=== PATIENT | female | born 1970 | race Hispanic/Latino ===

== ENCOUNTER 2023-08-20 08:52 | Inpatient (IN) | payer BC, SELFPAY ==
--- OUTSIDE RECORDS SUMMARY | 2023-08-20 08:56 | XMS REPORT | Continuity of Care Document ---
:1970 Author Organization [facility] t Address [address] [place] [address] Care Team Providers Name Role Phone Taylor Giles Attending Clinician Unavailable PROVIDER, VIDEOVISITNOW Attending Clinician Unavailable MD PATEL Attending Clinician Unavailable KATHY HARRIS Attending Clinician Unavailable ARMANDO Attending Clinician Unavailable ARMANDO Admitting Clinician Unavailable Payers Payer Name Policy Type Policy Number Effective Date Expiration Date S jc BCBS 2 [id number] 2023 00:00:00 [employer] 6 [id number] [facility] AETNA (POS) [id number] 2015 2020 00:00:00 00:00:00 Problems Condition Condition Condition Status Onset Resolution Last Treating Co mments Source Name Details Category Date Date Treatment Clinician Date Mild Mild Disease Active Krys intermitte intermitte 3-29 Se ybold nt asthma nt asthma 00:00: - without without 00 Externa complicati complicati l on on Class 3 Class 3 Disease Active Krys severe severe 3-29 Seybold obesity obesity 00:00: - due to due to 00 Externa excess excess l calories calories without without serious serious comorbidit comorbidit y with y with body mass body mass index index (BMI) of (BMI) of 50.0 to 50.0 to 59.9 in 59.9 in adult adult History of History of Disease Active Overview : Krys anaphylaxi anaphylaxi 3- Formattin Seybold s s 00:00: g of this note Externa might be l different from the original. 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's Archibald's Problem Active [place] palsy Palsy - da 00:00: [facility] [id number] Panic Problem Common attacks [facility] [id number] Anxiety Problem Common [facility] [id number] Vitamin D Problem Comm on deficiency [facility] [id number] Chronic Problem Common fatigue [facility] [id number] Cataract Problem Comm on of left [facility] eye, - [facility] unspecifie [facility] cataract [facility] [id number] Morbid Problem Common obesity Spirit due to - [facility] excess [facility] Allergies, Adverse Reactions, Alerts Allergy Allergy Status Severity Reaction(s) Onset Inactive Treating Comm ents Source Name Type Date Date Clinician Nsaids Propensi Active Other Krys ty to 3-29 reaction( Seybold adverse 00:00: s): SOB - reaction 00 Externa s l Iodine Propensi Active Anaphylaxis Other Raul baker ty to 5-11 reaction( Seybold adverse 00:00: s): - reaction 00 Anaphylax Exter na s is l Naproxen Propensi Active Other Krys ty to 5-11 reaction( Seybold adverse 00:00: s): - reaction 00 Nausea/Vo Exter na s miting l Iodine Allergy Active Moderate Anaphylaxis Ma tagor to da substanc [facility] Shrimp Allergy Active Moderate Anaphylaxis Ma tagor to to severe da substanc [facility] shrimp shrimp Active anaphylaxis Commo n allergen allergen [facility] ic ic - [facility] extract extract [facility] Non-ster Non-ster Active SOB Common oidal oidal Spirit anti-inf anti-inf - [facility] lammator lammator [facility] agent [facility] Social History Social Habit Start Date Stop Date Quantity Comments Source History of Tobacco [facility] - Use [facility] Gender identity Krys mart - External Sexual orientation Krys Chung - External History of Social 2023-02-17 2023-02-17 Krys Chung function 00:00:00 00:00:00 - External Tobacco use and 2023-02-17 2023-02-17 Smokeless tobacco Ke moiz Chung exposure 00:00:00 00:00:00 non-user - External Alcohol intake 2023-02-17 2023-02-17 Ex-drinker Krys Baker bold 00:00:00 00:00:00 (finding) - External Sex Ass[birth year] At [birth year] Krys mart 00:00:00 00:00:00 - External Smoking Status Start Date Stop Date Source Never smoked tobacco Krys bradley - External Former Smoker 2022-08-25 00:00:00 2022-08-25 00:00:00 Common S pirit - [facility] nter Medications Ordered Filled Start Stop Current Ordering Indication Dosage Frequency Signature Comments Components Source Medication Medication Date Date Medication? Clinician (SIG) Name Name Ciprofloxac 2022- No [id number] 500mg Take 1 Krys in HCl 02-17 tablet Sebarron (Cipro) 500 00:00: 04:59 (500 mg - MG oral 00 :00 total) by Externa Tablet mouth 2 l times daily for 7 days Womens Womens No Womens Daily Daily 9- Daily Formula - Formula - 00:00: Formula - 00 Vitamin Vitamin No Vitamin C-Vitamin C-Vitamin 08-13 C-Vitamin D-Zinc - D-Zinc - 00:00: D-Zinc - 00 CBD Gummies CBD Gummies No QD CBD 1 1 08-13 Gummies 1 00:00: 00 Womens Womens 0 No Womens Daily Daily 9-22 Daily Formula - Formula - 00:00: Formula - 00 Vitamin Vitamin No Vitamin C-Vitamin C-Vitamin 08-13 C-Vitamin D-Zinc - D-Zinc - 00:00: D-Zinc - 00 Vitamin Vitamin No Vitamin C-Vitamin C-Vitamin 08-13 C-Vitamin D-Zinc - D-Zinc - 00:00: D-Zinc - 00 Womens Womens 0 No Womens Daily Daily - Daily Formula - Formula - 00:00: Formula - 00 CBD Gummies CBD Gummies 0 No QD CBD 1 1 9- Gummies 1 00:00: 00 CBD Gummies CBD Gummies 0 No QD CBD 1 1 9- Gummies 1 00:00: 00 Womens Womens 0 No Womens Daily Daily 08-13 Daily Formula - Formula - 00:00: Formula - 00 Vitamin Vitamin No Vitamin C-Vitamin C-Vitamin 08-13 C-Vitamin D-Zinc - D-Zinc - 00:00: D-Zinc - 00 CBD Gummies CBD Gummies No QD CBD 1 1 - Gummies 1 00:00: 00 Womens Womens 0 No Womens Daily Daily 08-13 Daily Formula - Formula - 00:00: Formula - 00 Vitamin Vitamin No Vitamin C-Vitamin C-Vitamin 08-13 C-Vitamin D-Zinc - D-Zinc - 00:00: D-Zinc - 00 Vitamin Vitamin No Vitamin C-Vitamin C-Vitamin 08-13 C-Vitamin D-Zinc - D-Zinc - 00:00: D-Zinc - 00 Womens Womens 0 No Womens Daily Daily 08-13 Daily Formula - Formula - 00:00: Formula - 00 CBD Gummies CBD Gummies 0 No QD CBD 1 1 08-13 Gummies 1 00:00: 00 CBD Gummies CBD Gummies 0 No QD CBD 1 1 9- Gummies 1 00:00: 00 Immune Immune No Immune Support - Support - Support - Albuterol Albuterol No 1{puff_ 6xD Albuterol Sulfate HFA Sulfate HFA as_need Sulfate 108 (90 108 (90 ed} HFA 108 Base) Base) (90 Base) MCG/ACT MCG/ACT MCG/ACT Vitamin B Vitamin B No Vitamin B 12 12 12 Multivitami Multivitami No 1{table QD Multivitam n - n - t} in - Immune Immune No Immune Support - Support - Support - Albuterol Albuterol No 1{puff_ 6xD Albuterol Sulfate HFA Sulfate HFA as_need Sulfate 108 (90 108 (90 ed} HFA 108 Base) Base) (90 Base) MCG/ACT MCG/ACT MCG/ACT Vitamin B Vitamin B No Vitamin B 12 12 12 Multivitami Multivitami No 1{table QD Multivitam n - n - t} in - Immune Immune No Immune Support - Support - Support - Albuterol Albuterol No 1{puff_ 6xD Albuterol Sulfate HFA Sulfate HFA as_need Sulfate 108 (90 108 (90 ed} HFA 108 Base) Base) (90 Base) MCG/ACT MCG/ACT MCG/ACT Vitamin B Vitamin B No Vitamin B 12 12 12 Multivitami Multivitami No 1{table QD Multivitam n - n - t} in - Immune Immune No Immune Support - Support - Support - Albuterol Albuterol No 1{puff_ 6xD Albuterol Sulfate HFA Sulfate HFA as_need Sulfate 108 (90 108 (90 ed} HFA 108 Base) Base) (90 Base) MCG/ACT MCG/ACT MCG/ACT Vitamin B Vitamin B No Vitamin B 12 12 12 Multivitami Multivitami No 1{table QD Multivitam n - n - t} in - Immune Immune No Immune Support - Support - Support - Albuterol Albuterol No 1{puff_ 6xD Albuterol Sulfate HFA Sulfate HFA as_need Sulfate 108 (90 108 (90 ed} HFA 108 Base) Base) (90 Base) MCG/ACT MCG/ACT MCG/ACT Vitamin B Vitamin B No Vitamin B 12 12 12 Vitamin B Vitamin B No Vitamin B 12 12 12 Immune Immune No Immune Support - Support - Support - Albuterol Albuterol No 1{puff_ 6xD Albuterol Sulfate HFA Sulfate HFA as_need Sulfate 108 (90 108 (90 ed} HFA 108 Base) Base) (90 Base) MCG/ACT MCG/ACT MCG/ACT Multivitami Multivitami No 1{table QD Multivitam n - n - t} in - Vitamin B Vitamin B No Vitamin B 12 12 12 Immune Immune No Immune Support - Support - Support - Albuterol Albuterol No 1{puff_ 6xD Albuterol Sulfate HFA Sulfate HFA as_need Sulfate 108 (90 108 (90 ed} HFA 108 Base) Base) (90 Base) MCG/ACT MCG/ACT MCG/ACT Multivitami Multivitami No 1{table QD Multivitam n - n - t} in - Multivitami Multivitami No 1{table QD Multivitam n - n - t} in - Immune Immune No Immune Support - Support - Support - Albuterol Albuterol No 1{puff_ 6xD Albuterol Sulfate HFA Sulfate HFA as_need Sulfate 108 (90 108 (90 ed} HFA 108 Base) Base) (90 Base) MCG/ACT MCG/ACT MCG/ACT Vitamin B Vitamin B No Vitamin B 12 12 12 Multivitami Multivitami No 1{table QD Multivitam n - n - t} in - Diflucan Diflucan No 1 Q2D Diflucan [place] 150 mg 150 mg 150 mg da tablet Take tablet Take tablet [facility] 1 tablet 1 tablet Take 1 al every other every other tablet Health day by oral day by oral every Outreac route for 6 route for 6 other day h days. days. by oral Program route for 6 days. terconazole terconazole No 1applic Q1D terconazol [place] 0.4 % 0.4 % ator(s) e 0.4 % da vaginal vaginal ful vaginal [facility] cream cream cream al Insert 1 Insert 1 Insert 1 Hea lth applicatorf applicatorf applicator Outreac ul every ul every ful every h day by day by day by Program vaginal vaginal vaginal route for 7 route for 7 route for days. days. 7 days. Vital Signs Vital Name Observation Time Observation Value Comments Source Systolic blood 2023-02-17 16:24:00 128 mm[Hg] Krys Chung - pressure External Diastolic blood 2023-02-17 16:24:00 65 mm[Hg] Mishel Chung - pressure External Heart rate 2023-02-17 16:24:00 78 /min Krys asif - External Body temperature 2023-02-17 16:24:00 36.5 Sheila Elena Chung - External Respiratory rate 2023-02-17 16:24:00 16 /min Elena Chung - External Body height 2023-02-17 16:24:00 160 cm Krys asif - External Body weight 2023-02-17 16:24:00 138.801 kg Krys lozabold - External BMI 2023-02-17 16:24:00 54.21 kg/m2 Krys asif - External Oxygen saturation in 2023-02-17 16:24:00 96 /min Krys Chung - Arterial blood by External Pulse oximetry height 2022-08-25 09:00:00 63.75 [in_i] [facility] weight 2022-08-25 09:00:00 307.2 [lb_av] [facility] temperature 2022-08-25 09:00:00 97.3 [degF] [facility] bmi 2022-08-25 09:00:00 53.14 kg/m2 [facility] oximetry 2022-08-25 09:00:00 98 % [facility] respiratory rate 2022-08-25 09:00:00 16 /min Comm on [facility] blood pressure 2022-08-25 09:00:00 135 mm[Hg] [facility] - systolic [facility] blood pressure 2022-08-25 09:00:00 72 mm[Hg] [facility] diastolic [facility] height 2022-07-28 10:20:00 63.75 [in_i] [facility] weight 2022-07-28 10:20:00 307 [lb_av] [facility] temperature 2022-07-28 10:20:00 97.3 [degF] [facility] bmi 2022-07-28 10:20:00 53.1 kg/m2 [facility] oximetry 2022-07-28 10:20:00 100 % [facility] respiratory rate 2022-07-28 10:20:00 18 /min Comm on [facility] blood pressure 2022-07-28 10:20:00 108 mm[Hg] [facility] - systolic [facility] blood pressure 2022-07-28 10:20:00 80 mm[Hg] [facility] - diastolic [facility] BP Diastolic 2019-12-22 00:00:00 79 mm[Hg] [place] [facility] Height 2019-12-22 00:00:00 63 [in_i] [place] [facility] BMI (Body Mass 2019-12-22 00:00:00 53.9 kg/m2 [place] applications support analyst Index) [facility] BP Systolic 2019-12-22 00:00:00 174 mm[Hg] [place] [facility] Body Weight 2019-12-22 00:00:00 304 [lb_av] [place] [facility] Procedures Procedure Date / Time Performed Performing Clinician Sourc e MAMMO, screening, 2019-12-22 00:00:00 [place] [facility] Tubal Ligation [place] [facility] Orthopedic Surgery [place] [facility] Delivery [place] [facility] Plan of Care Planned Activity Planned Date Details Comments Source Diagnostic Test 2019-12-22 CBC w/ auto diff [place] Pending 00:00:00 [code = CBC w/ auto [facility] diff] [facility] Diagnostic Test 2019-12-22 TSH + free T4, serum Dalton harriet Pending 00:00:00 [code = TSH + free [facility] T4, serum] [facility] Diagnostic Test 2019-12-22 lipid panel, serum [facility] applications support analyst Pending 00:00:00 [code = lipid panel, [facility] serum] [facility] Diagnostic Test 2019-12-22 HIV 1+2 AB + HIV 1 [place] applications support analyst Pending 00:00:00 p24 Ag, qualitative [facility] immunoassay, serum [facility] [code = HIV 1+2 AB + HIV 1 p24 Ag, qualitative immunoassay, serum] Diagnostic Test 2019-12-22 RPR (rapid plasma [place] Pending 00:00:00 reagin), serum [code [facility] = RPR (rapid plasma Outreach Program reagin), serum] Diagnostic Test 2019-12-22 HBsAg (hepatitis B [facility] applications support analyst Pending 00:00:00 surface Ag), EIA, [facility] serum [code = HBsAg Outreach [facility] (hepatitis B surface Ag), EIA, serum] Diagnostic Test 2019-12-22 pap, IG + CT/NG/TV [facility] applications support analyst Pending 00:00:00 [code = pap, IG + [facility] CT/NG/TV] [facility] Diagnostic Test 2019-12-22 CMP, serum or plasma Dalton harriet Pending 00:00:00 [code = CMP, serum or [facility] plasma] [facility] Encounters Start End Encounter Admission Attending Care Care Encounter Source Date/Time Date/Time Type Type Clinicians Facility Department ID 2022-08-21 Outpatient Taylor Giles [facility] [id number] 2 Common 13:27:00 [facility] 2022-08-13 Outpatient Taylor Giles [facility] [id number] 2 Common 16:38:00 [facility] 2022-07-28 Outpatient Taylor Giles [facility] [id number] 2 Common 10:22:03 [facility] 2023-06-21 2023-06-21 Outpatient PROVIDERKRYS [id number] Krys 08:45:00 08:45:00 VIDEOVISITN barron OW 2023-06-21 2023-06-21 Outpatient CALIXTO HUNTER [id number] Krys 00:00:00 00:00:00 MD Kadeem BEE 2023-06-02 2023-06-02 Outpatient KRYS HARRIS [id number] Krys 14:30:00 14:30:00 KATHY cunha 2023-02-17 2023-02-17 Outpatient KRYS HARRIS [id number] Krys 11:30:00 11:30:00 KATHY Siuybol guerline 2022-08-25 2022-08-25 (TEL) [facility] [id number] Co mmon 00:00:00 00:00:00 [facility] 2022-08-25 2022-08-25 PREV VISIT STLMLC STLC [id number] Common 00:00:00 00:00:00 EST AGE Yifan [age] [facility] 2022-08-12 2022-08-12 (TEL) STLMLC STLMLC [id number] Co mmon 00:00:00 00:00:00 [facility] 2022-07-28 2022-07-28 (TEL) STLMLC STLMLC [id number] Co mmon 00:00:00 00:00:00 [facility] 2022-07-28 2022-07-28 OFFICE STLC STLC [id number] Co mmon 00:00:00 00:00:00 VISIT NEW Spir it PT LEVEL 4 - [facility] 2019-12-30 2019-12-30 Outpatient MARVIN_DIANE SHELLEY [facility] [id number] [place] 11:06:00 11:06:00 SSA [id number] [facility] 2019-12-22 2019-12-22 Outpatient MARVIN_DIANE SHELLEY [facility] [id number] [place] 04:20:00 04:20:00 SSA [id number] da [facility] 2019-12-22 2019-12-22 Fay VTMAYELA [place] - [id number] M atagor 00:00:00 00:00:00 Allyson Cox, [facility] VINEYARD SUPERVISOR: [address] [facility] Marlene Xavier N, TEAM TRUCK DRIVER [facility], [facility] [id number] [facility] , Ph. 2019-12-19 2019-12-19 Outpatient MARVIN_DIANE SHELLEY VTHOP [id number] [place] 08:13:00 08:13:00 SSA [id number] [facility] Results Test Description Test Time Test Comments Results Result Comments Source Free T4 and TSH panel - Serum or Plasma 2019-12-23 00:00:00 Test Item Value Reference Range Interpretation Comme nts Thyrotropin [Units/volume] in Serum or Plasma by 1.690 uIU/mL 0.450 -4.500 Detection limit <= 0.005 mIU/L (test code = 37878-3) Thyroxine (T4) free [Mass/volume] in Serum or Plasma 1.22 NG/dL 0 .82-1.77 (test code = 3024-7) [facility] W Auto Differential panel - Blood 2019-12-23 00:00:00 Test Item Value Reference Range Interpretation Comments Leukocytes [#/volume] in Blood 14.1 x10e3/uL 3.4-10.8 H by Automated count (test code = 6690-2) Erythrocytes [#/volume] in 4.52 x10e6/uL 3.77-5.28 Blood by Automated count (test code = 789-8) Hemoglobin [Mass/volume] in 12.7 g/dL 11.1-15.9 Blood (test code = 718-7) Hematocrit [Volume Fraction] of 38.2 % 34.0-46.6 Blood by Automated count (test code = 4544-3) Erythrocyte mean corpuscular 85 fL 79-97 volume [Entitic volume] by Automated count (test code = 787-2) Erythrocyte mean corpuscular 28.1 pg 26.6-33.0 hemoglobin [Entitic mass] by Automated count (test code = 785-6) Erythrocyte mean corpuscular 33.2 g/dL 31.5-35.7 hemoglobin concentration [Mass/volume] by Automated count (test code = 786-4) Erythrocyte distribution width 13.8 % 11.7-15.4 [Ratio] by Automated count (test code = 788-0) Platelets [#/volume] in Blood 377 x10e3/uL 150-450 by Automated count (test code = 777-3) Neutrophils/100 leukocytes in 63 % not estab. Blood by Automated count (test code = 770-8) Lymphocytes/100 leukocytes in 29 % not estab. Blood by Automated count (test code = 736-9) Monocytes/100 leukocytes in 6 % not estab. Blood by Automated count (test code = 5905-5) Eosinophils/100 leukocytes in 2 % not estab. Blood by Automated count (test code = 713-8) Basophils/100 leukocytes in 0 % not estab. Blood by Automated count (test code = 706-2) immature cells (test code = unpaid intern immature cells) Neutrophils [#/volume] in Blood 8.8 x10e3/uL 1.4-7.0 H by Automated count (test code = 751-8) Lymphocytes [#/volume] in Blood 4.0 x10e3/uL 0.7-3.1 H by Automated count (test code = 731-0) Monocytes [#/volume] in Blood 0.9 x10e3/uL 0.1-0.9 by Automated count (test code = 742-7) Eosinophils [#/volume] in Blood 0.3 x10e3/uL 0.0-0.4 by Automated count (test code = 711-2) Basophils [#/volume] in Blood 0.1 x10e3/uL 0.0-0.2 by Automated count (test code = 704-7) immature granulocytes (test 0 % not estab. code = immature granulocytes) Granulocytes Immature 0.0 x10e3/uL 0.0-0.1 [#/volume] in Blood by Automated count (test code = 19922-6) Nucleated erythrocytes/100 unpaid intern leukocytes [Ratio] in Blood by Automated count (test code = 57784-3) Morphology [interpretation] in unpaid intern Blood Narrative (test code = 03476-8) [facility] Outreach ProgramComprehensive metabolic 2000 panel - Serum or [id number] 00:00:00 Test Item Value Reference Range Interpretation Comments Glucose [Mass/volume] in Serum 95 mg/dL 65-99 or Plasma (test code = 2345-7) Urea nitrogen [Mass/volume] in 14 mg/dL 6-24 Serum or Plasma (test code = 3094-0) Creatinine [Mass/volume] in 0.89 mg/dL 0.57-1.00 Serum or Plasma (test code = 2160-0) eGFR if nonafricn AM (test 77 mL/min/1.73 >59 code = eGFR if nonafricn AM) eGFR if africn AM (test code = 89 mL/min/1.73 >59 eGFR if africn AM) Urea nitrogen/Creatinine [Mass 16 9-23 Ratio] in Serum or Plasma (test code = 3097-3) Sodium [Moles/volume] in Serum 140 mmol/L 134-144 or Plasma (test code = 2951-2) Potassium [Moles/volume] in 4.0 mmol/L 3.5-5.2 Serum or Plasma (test code = 2823-3) Chloride [Moles/volume] in 102 mmol/L 96-106 Serum or Plasma (test code = 2074-0) Carbon dioxide, total 22 mmol/L 20-29 [Moles/volume] in Serum or Plasma (test code = 2027-9) Calcium [Mass/volume] in Serum 9.1 mg/dL 8.7-10.2 or Plasma (test code = 44932-3) Protein [Mass/volume] in Serum 7.6 g/dL 6.0-8.5 or Plasma (test code = 2885-2) Albumin [Mass/volume] in Serum 3.9 g/dL 3.8-4.8 or Plasma (test code = 1751-7) Globulin [Mass/volume] in 3.7 g/dL 1.5-4.5 Serum by calculation (test code = 55095-7) Albumin/Globulin [Mass Ratio] 1.1 1.2-2.2 L in Serum or Plasma (test code = 1759-0) Bilirubin.total [Mass/volume] <0.2 0.0-1.2 in Serum or Plasma (test code = 1974-2) Alkaline phosphatase 109 IU/L 39-117 [Enzymatic activity/volume] in Serum or Plasma (test code = 6768-6) Aspartate aminotransferase 22 IU/L 0-40 [Enzymatic activity/volume] in Serum or Plasma (test code = 1920-8) Alanine aminotransferase 23 IU/L 0-32 [Enzymatic activity/volume] in Serum or Plasma (test code = 1742-6) [facility] - [facility] or Plasma 2019-12-23 00:00:00 Test Item Value Reference Range Interpretation Comments Cholesterol [Mass/volume] in Serum 174 mg/dL 100-199 or Plasma (test code = 2092-3) Triglyceride [Mass/volume] in Serum 150 mg/dL 0-149 H or Plasma (test code = 2571-8) Cholesterol in HDL [Mass/volume] in 44 mg/dL >39 Serum or Plasma (test code = 2084-9) Cholesterol in VLDL [Mass/volume] 30 mg/dL 5-40 in Serum or Plasma by calculation (test code = 10671-8) Cholesterol in LDL [Mass/volume] in 100 mg/dL 0-99 H Serum or Plasma by calculation (test code = 40945-6) comment: (test code = comment:) unpaid intern [facility] [Presence] in Serum by RPR 2019-12-23 00:00:00 Test Item Value Reference Range Interpretation Comments Reagin Ab [Presence] in Serum by non reactive non reactive RPR (test code = 38798-4) [facility] Ab+HIV1 p24 Ag [Presence] in Serum by [id number] 00:00:00 Test Item Value Reference Range Interpretation Comments HIV 1+2 Ab+HIV1 p24 Ag non reactive non reactive [Presence] in Serum by Immunoassay (test code = 58194-9) [facility]atitis [facility] virus surface Ag [Presence] in Serum or Plasma by [id number] 00:00:00 Test Item Value Reference Range Interpretation Comments Hepatitis B virus surface Ag negative negative [Presence] in Serum or Plasma by Immunoassay (test code = 5196-1) [facility] panel, [id number] 00:00:00 Test Item Value Reference Range Interpretation Comments interpretation (test code = note interpretation) pdf image (test code = pdf image) . [facility]
[2023-08-20 09:24] LABS: Specific Gravity 1.019 (1.005-1.030); Urine Bacteria >50 /HPF (<20); Urine Bilirubin NEGATIVE (Negative); Urine Blood 3+ (OVER) (Negative); Urine Clarity Extremely Turbid (Clear); Urine Color Dark-Yellow (Yellow); Urine Glucose NEGATIVE (Negative); Urine Protein 2+ (Negative); Urine RBC >50 /HPF (None Seen); Urine Urobilinogen Normal (Normal); Urine pH 5.5 (5.0-7.0)
[2023-08-20] MEDS ORDERED: ONDANSETRON 4 MG/2 ML VIAL ONE (09:38)
[2023-08-20] MEDS ORDERED: MORPHINE 4 MG/ML SYR ONE ×3 (09:38→14:36)
[2023-08-20 09:39] LABS: Absolute Lymphocytes (CBC) 3.7 K/uL (0.7-4.9); Hematocrit 37.9 % (36.0-45.0); Lymphocytes % 26.1 % (15.3-44.8); MCV 84.9 fL (80-100); MPV 7.9 fL (7.6-11.3); Platelets 314 thou/uL (152-406); RBC Red Blood Cell Count 4.47 M/uL (3.86-4.86)
--- NOTE | 2023-08-20 09:47 | RAD REPORT ---
EXAM DESCRIPTION: [facility] Protocol - 08/20/2023 9:39 am CLINICAL HISTORY: back/flank pain COMPARISON: No comparisons TECHNIQUE: CT of the abdomen and pelvis was performed. All CT scans are performed using dose optimization technique as appropriate and may include automated exposure control or mA/KV adjustment according to patient size. FINDINGS: Lower chest: No acute abnormality. Liver: Hepatic steatosis. Cirrhotic liver morphology. Biliary: No biliary ductal dilatation. Stomach: No significant focal abnormality. Duodenum: No significant focal abnormality. Pancreas: No significant abnormality. Spleen: No significant abnormality. Adrenal: No suspicious lesions. Kidney/ureter: Right periureteric stranding and mild right-sided hydronephrosis. No obstructing stone . Retroperitoneum: No retroperitoneal adenopathy. Vascular: No aneurysm. Bowel: Diverticulosis without diverticulitis. Normal appendix. Peritoneum: No ascites or free air. Bladder: Grossly unremarkable. Reproductive: No adnexal masses. Bones: No acute fracture. Other: n/a IMPRESSION: Mild right-sided hydroureteronephrosis and periureteric stranding. No obstructing stone or mass is seen. This could be secondary to either recently passed stone or infection.
[2023-08-20 09:55] LABS: Albumin 3.1 g/dL (3.4-5.0); Bilirubin Total 0.3 mg/dL (0.2-1.0); Potassium 3.6 mEq/L (3.5-5.1); Protein, Total 8.1 g/dL (6.4-8.2)
--- NOTE | 2023-08-20 10:05 | EDPHYS ---
Physician Documentation [facility] Name: Angelita Bellamy Age: 53 yrs Sex: Female : 1970 Arrival Date: 08/20/2023 Time: 08:52 Bed 20 Private MD: ED Physician Renard Martinez HPI: 08/20 09:22 This 53 yrs old Female presents to ER via Ambulatory with complaints of Low rn Back Pain. 09:22 The patient presents with pain that is acute. The symptoms are located in the low back. rn The pain radiates to the abdomen. Onset: The symptoms/episode began/occurred 2 day(s) ago. Modifying factors: The patient symptoms are alleviated by nothing, the patient symptoms are aggravated by nothing. Associated signs and symptoms: Pertinent positives: abdominal pain, hematuria, Pertinent negatives: fever, incontinence, urinary retention. Severity of symptoms: At their worst the symptoms were moderate, in the emergency department the symptoms are unchanged. The patient has not experienced similar symptoms in the past. The patient has not recently seen a physician. Patient reports right lower back pain that radiates around to the abdomen, feels bloated, recent doctor visit with hematuria and told needed outpatient work-up.. Historical: - Allergies: 09:01 Iodine; nj1 09:01 Naproxen; nj1 09:01 Aleve; nj1 09:01 Advil; nj1 - PMHx: 09:01 Asthma; nj1 - PSHx: 09:01 section; nj1 - Immunization history:: Client reports receiving the 2nd dose of the Covid vaccine. - Social history:: Smoking status: Patient denies any tobacco usage or history of. - Family history:: not pertinent. - Hospitalizations: : No recent hospitalization is reported. ROS: 09:25 Constitutional: Negative for fever, chills, and weight loss, Cardiovascular: Negative rn for chest pain, palpitations, and edema, Respiratory: Negative for shortness of breath, cough, wheezing, and pleuritic chest pain, Abdomen/GI: Positive for abdominal bloating Back: Positive for right lower back pain : Positive for dysuria MS/Extremity: Negative for injury and deformity, Skin: Negative for injury, rash, and discoloration, Neuro: Negative for headache, weakness, numbness, tingling, and seizure, Exam: 09:25 Constitutional: This is a well developed, well nourished patient who is awake, alert, rn appears uncomfortable, ambulatory to room without assistance Head/Face: Normocephalic, atraumatic. Cardiovascular: Regular rate and rhythm. No pulse deficits. Respiratory: No increased work of breathing, no retractions or nasal flaring. Abdomen/GI: Soft, non-tender Back: No spinal tenderness. Full range of motion. No CVAT Skin: Warm, dry MS/ Extremity: Pulses equal, no cyanosis. Neuro: Awake and alert, GCS 15, oriented to person, place, time, and situation. Cranial nerves II-XII grossly intact. Motor strength 5/5 in all extremities. Sensory grossly intact. Cerebellar exam normal. Normal gait. Vital Signs: 08:58 BP 161 / 73; Pulse 77; Resp 18; Temp 98.1(TE); Pulse Ox 100% ; Weight 136.08 kg; Height nj1 5 ft. 3 in. ; Pain 8/10; 09:35 BP 111 / 82; Pulse 88; Resp 20; Pulse Ox 96% on R/A; tf2 10:00 BP 111 / 82; Pulse 83; Resp 16; Pulse Ox 98% on R/A; tf2 10:15 Pain 7/10; tf2 11:00 BP 127 / 55; Pulse 70; Resp 16; Pulse Ox 98% on R/A; tf2 11:30 Pain 5/10; tf2 12:30 BP 112 / 56; Pulse 67; Resp 15; Temp 98.5; Pulse Ox 96% on R/A; tf2 14:00 BP 118 / 56; Pulse 68; Resp 17; Pulse Ox 96% on R/A; tf2 17:00 BP 106 / 58; Pulse 80; Resp 15; Pulse Ox 98% on R/A; tf2 08:58 Body Mass Index 53.14 (136.08 kg, 160.02 cm) nj1 08:58 Pain Scale: Adult nj1 10:15 Pain Scale: Adult tf2 11:30 Pain Scale: Adult tf2 [place] Coma Score: 09:35 Eye Response: spontaneous(4). Motor Response: obeys commands(6). Verbal Response: tf2 oriented(5). Total: 15. MDM: 08:55 Patient medically screened. rn 10:01 Differential diagnosis: strain, Herniated disc UTI, ascending infection, rn pyelonephritis. Data reviewed: vital signs, nurses notes, lab test result(s), radiologic studies, CT scan, and as a result, I will admit patient. Consideration of Admission/Observation Patient was admitted/placed on observation. Escalation of care including admission/observation considered. 10:04 Counseling: I had a detailed discussion with the patient and/or guardian regarding the rn historical points, exam findings, and any diagnostic results supporting the discharge/admit diagnosis, lab results, radiology results, the need for further work-up and treatment in the hospital. Response to treatment: There is no appreciated change of the patient's symptoms at this time. ED course: Patient with a sending infection, probably early pyelonephritis. Stable vital signs. Elevated WBC. Patient still very uncomfortable. No perinephric abscess or stone. Will admit for IV antibiotics and pain control.. 08/20 09:02 Order name: Urinalysis w/ reflexes; Complete Time: 09:54 08/20 09:16 Order name: CBC with Diff; Complete Time: 09:54 08/20 09:16 Order name: CMP; Complete Time: 10:04 08/20 09:16 Order name: Lipase; Complete Time: 10:04 08/20 09:27 Order name: Urine Culture [facility] 08/20 10:03 Order name: Blood Culture Adult (2) 08/20 10:03 Order name: Lactate w/ 2H reflex if indic. 08/20 13:42 Order name: Bilirubin Direct [facility] 08/20 13:42 Order name: Phosphorus [facility] 08/20 13:42 Order name: Magnesium [facility] 08/20 16:07 Order name: Lactate Sepsis 2 HR Follow-up [facility] 08/20 09:16 Order name: CT Stone Protocol; Complete Time: 09:54 08/20 11:22 Order name: CONS Physician Consult [facility] 08/20 09:16 Order name: IV Saline Lock; Complete Time: 09:22 08/20 09:16 Order name: Labs collected and sent; Complete Time: 09:22 rn Administered Medications: 09:34 Drug: morphine IVP or IV 4 mg IVP once over 4 mins Route: IVP; Infused Over: 4 mins; tf2 Site: right antecubital; 10:15 Follow up: Pain 05/31 Adult tf2 09:34 Drug: Ondansetron IVP 4 mg IVP once; over 2 minutes Route: IVP; Site: right antecubital;tf2 10:30 Follow up: Response: Nausea is decreased tf2 10:40 Drug: morphine IVP or IV 4 mg IVP once over 4 mins Route: IVP; Infused Over: 4 mins; tf2 Site: right antecubital; 11:30 Follow up: Response: Pain is decreased tf2 11:30 Follow up: Pain 5/10 Adult tf2 11:56 Drug: Rocephin IV 1 grams IV at calculated rate once; Given slow IV push per pharmacy tf2 instructions Route: IV; Rate: calculated rate; Site: right antecubital; 13:00 Follow up: IV Status: Completed infusion tf2 Disposition Summary: 08/20/23 10:05 Hospitalization Ordered Notes: Hospitalization Status: Inpatient Admission rn Provider: Javier Latham rn Condition: Stable rn Problem: new rn Symptoms: are unchanged rn Bed/Room Type: Standard rn Location: Telemetry/MedSurg (Inpatient)(08/20/23 16:25) eb Room Assignment: [facility](08/20/23 16:25) eb Diagnosis - Pyelonephritis acute rn Forms: - Medication Reconciliation Form rn - SBAR form rn - Leadership Thank You Letter rn Signatures: Dispatcher [employer] EDRenard Saunders MD MD rn Botello, Elizabeth eb Jaco, Norma RN RN nj1 Alanis Hoang RN RN tf2 Corrections: (The following items were deleted from the chart) 09:21 09:16 Abdomen Pelvis W Con+CT.RAD.BRZ ordered. EDPR EDPR 11:23 10:05 Telemetry/MedSurg (Inpatient) rn eb 11: 10:05 rn eb 16:25 11:23 [facility] ER HOLD eb eb 16: 11:23 ERHOLD- eb eb
--- NOTE | 2023-08-20 10:05 | ER ---
Nurse's Notes [facility] Name: Angelita Bellamy Age: 53 yrs Sex: Female : 1970 Arrival Date: 08/20/2023 Time: 08:52 Bed 20 Private MD: Diagnosis: Pyelonephritis acute Presentation: 08/20 08:58 Chief complaint: Patient states: Right low back pain for 3 days, getting worse. Started nj1 having some urinary discomfort 2 days ago. Unsure if it is a UTI. Coronavirus screen: Vaccine status: Patient reports receiving the 2nd dose of the covid vaccine. Ebola Screen: Patient denies travel to an Ebola-affected area in the 21 days before illness onset. Initial Sepsis Screen: Does the patient meet any 2 criteria? No. Patient's initial sepsis screen is negative. Does the patient have a suspected source of infection? No. Patient's initial sepsis screen is negative. Risk Assessment: Do you want to hurt yourself or someone else? Patient reports no desire to harm self or others. Onset of symptoms was August 17, 2023. 08:58 Method Of Arrival: Ambulatory [facility] 08:58 Acuity: LEANN 3 nj1 Triage Assessment: 17:14 General: Behavior is calm, cooperative, quiet. tf2 Historical: - Allergies: 09:01 Iodine; nj1 09:01 Naproxen; nj1 09:01 Aleve; nj1 09:01 Advil; nj1 - PMHx: 09:01 Asthma; md1 - PSHx: 09:01 section; nj1 - Immunization history:: Client reports receiving the 2nd dose of the Covid vaccine. - Social history:: Smoking status: Patient denies any tobacco usage or history of. - Family history:: not pertinent. - Hospitalizations: : No recent hospitalization is reported. Screenin:35 [facility] ED Fall Risk Assessment (Adult) History of falling in the last 3 months, tf2 including since admission No falls in past 3 months (0 pts) Confusion or Disorientation No (0 pts) Intoxicated or Sedated No (0 pts) Impaired Gait No (0 pts) Mobility Assist Device Used No (0 pt) Altered Elimination Yes (1 pt) Score/Fall Risk Level 0 - 2 = Low Risk Oriented to surroundings, Maintained a safe environment, Educated pt \T\ family on fall prevention, incl call for assistance when getting out of bed, Assessed \T\ reinforced patient's understanding of fall precautions, Provided non-skid footwear. Abuse screen: Denies threats or abuse. Denies injuries from another. Nutritional screening: No deficits noted. Tuberculosis screening: No symptoms or risk factors identified. Assessment: 09:35 General: Appears uncomfortable, obese, well groomed. Pain: Complains of pain in lumbar tf2 area, left low back and right low back through to front of lower abdomen. Neuro: No deficits noted. Cardiovascular: No deficits noted. Respiratory: No deficits noted. GI: Reports lower abdominal pain, bloating. GI: Abdomen is distended, obese. : Reports burning with urination, pain urgency. Musculoskeletal: No deficits noted. Vital Signs: 08:58 BP 161 / 73; Pulse 77; Resp 18; Temp 98.1(TE); Pulse Ox 100% ; Weight 136.08 kg; Height nj1 5 ft. 3 in. ; Pain 8/10; 09:35 BP 111 / 82; Pulse 88; Resp 20; Pulse Ox 96% on R/A; tf2 10:00 BP 111 / 82; Pulse 83; Resp 16; Pulse Ox 98% on R/A; tf2 10:15 Pain 7/10; tf2 11:00 BP 127 / 55; Pulse 70; Resp 16; Pulse Ox 98% on R/A; tf2 11:30 Pain 5/10; tf2 12:30 BP 112 / 56; Pulse 67; Resp 15; Temp 98.5; Pulse Ox 96% on R/A; tf2 14:00 BP 118 / 56; Pulse 68; Resp 17; Pulse Ox 96% on R/A; tf2 17:00 BP 106 / 58; Pulse 80; Resp 15; Pulse Ox 98% on R/A; tf2 08:58 Body Mass Index 53.14 (136.08 kg, 160.02 cm) nj1 08:58 Pain Scale: Adult nj1 10:15 Pain Scale: Adult tf2 11:30 Pain Scale: Adult tf2 [place] Coma Score: 09:35 Eye Response: spontaneous(4). Motor Response: obeys commands(6). Verbal Response: tf2 oriented(5). Total: 15. ED Course: 08:55 Patient arrived in ED. im 08:55 Renard Martinez MD is Attending Physician. rn 09:01 Triage completed. nj1 09:02 Arm band placed on right wrist. nj1 09:09 Alanis Hoang, RN is Primary Nurse. tf2 09:[address] restless. A[address] CT Scan. tf2 09:15 No provider procedures requiring assistance completed. Inserted saline lock: 20 gauge tf2 in right antecubital area, using aseptic technique. 09:15 Patient maintains SpO2 saturation greater than 95% on room air. tf2 09:35 Alanis Hoang, RN is Primary Nurse. tf2 09:35 Patient has correct armband on for positive identification. Allergy band placed. Placed tf2 in gown. Bed in low position. Call light in reach. Side rails up X2. Pulse ox on. NIBP on. Verbal reassurance given. Diet: Patient is NPO. 09:39 CT Stone Protocol In Process Unspecified. EDMS 09:[address] via stretcher. tf2 10:04 Javier Latham MD is Hospitalizing Provider. rn 11:30 Awaiting lab results, Awaiting radiology results. tf2 11:30 Pillow given. PO fluids given. Verbal reassurance given. tf2 17:18 No apparent distress. tf2 17:19 Patient Pt resting quietly; spouse at bedside. tf2 17:19 Patient Pt resting; denies needs; given blanket for lower back. States helps back feel tf2 better. Administered Medications: 09:34 Drug: morphine IVP or IV 4 mg IVP once over 4 mins Route: IVP; Infused Over: 4 mins; tf2 Site: right antecubital; 10:15 Follow up: Pain 7/10 Adult tf2 09:34 Drug: Ondansetron IVP 4 mg IVP once; over 2 minutes Route: IVP; Site: right antecubital;tf2 10:30 Follow up: Response: Nausea is decreased tf2 10:40 Drug: morphine IVP or IV 4 mg IVP once over 4 mins Route: IVP; Infused Over: 4 mins; tf2 Site: right antecubital; 11:30 Follow up: Response: Pain is decreased tf2 11:30 Follow up: Pain 5/10 Adult tf2 11:56 Drug: Rocephin IV 1 grams IV at calculated rate once; Given slow IV push per pharmacy tf2 instructions Route: IV; Rate: calculated rate; Site: right antecubital; 13:00 Follow up: IV Status: Completed infusion tf2 Medication: 09:35 VIS not applicable for this client. tf2 Outcome: 10:05 Decision to Hospitalize by Provider. rn 11:30 Condition: stable tf2 13:30 Condition: stable tf2 18:54 Patient left the ED. jl7 Signatures: Dispatcher [employer] EDMS Renard Martinez MD MD rn Leal, Jahala RN RN jl7 Maday Robins RN RN nj1 Charu Sahu Traci, RN RN tf2
[2023-08-20] MEDS ORDERED: CEFTRIAXONE 1000 MG/VIAL ONE (10:40)
[2023-08-20] MEDS ORDERED: NA CHLORIDE 0.9% 50 ML ONE (10:44)
--- NOTE | 2023-08-20 12:15 | P.HP ---
Certification for Inpatient With expected LOS: >2 Midnights Patient will require the following post-hospital care: None Practitioner: I am a practitioner with admitting privileges, knowledge of patient current condition, hospital course, and medical plan of care. Services: Services provided to patient in accordance with Admission requirements found in Title 42 Section 412.3 of the Code of Federal Regulations Patient History Date of Service: 08/20/23 Reason for admission: abdominal pain, pyelonephritis History of Present Illness: Angelita Bellamy is a 53 year old female with past medical history of PE and asthma, presents to the ED with severe abdominal and back pain. onset of smptoms are 2 days with urinary frequency and burning while urinating, patient felt nauseous and had chills at home this morning. Initial vitals BP 161/73, HR 77, RR 17, temp 98.1, Pulse ox 100% on RA. WBC 14.3, lactic 2.1, CT shows mild right-sided hydroureteronephrosis and periuretieric stranding, no obstructing stone or mass seen, could be secondary to either recently pased stone or infection. Patient will be admitted for right pyelonephritis secondary to UTI. Allergies iodine Allergy (Severe, Verified 04/01/17 17:00) Anaphylaxis naproxen Allergy (Verified 04/01/17 17:00) Nausea/Vomiting Home Medications: Albuterol Inhaler [Ventolin Inhaler*] 2 puff IH Q6H PRN 04/01/17 Albuterol Sulfate [Albuterol Sulfate 0.083% Neb Soln] 2.5 mg IH Q6HR #350 ml 04/02/17 - Past Medical/Surgical History Diabetic: No -: asthma -: PE - Family History Mother -: Other (see notes) Notes: aneursym; - Social History Alcohol use: No CD- Drugs: No Caffeine use: No Review of Systems General: Chills, Malaise Eyes: Unremarkable ENT: Unremarkable Respiratory: Unremarkable Cardiovascular: Unremarkable Gastrointestinal: Nausea, Abdominal Pain, Distention (obese) Genitourinary: Frequency, Urgency Musculoskeletal: Unremarkable Integumentary: Unremarkable Neurological: Unremarkable Physical Examination - Physical Exam General: Alert, In no apparent distress, Oriented x3, Moderate distress HEENT: Atraumatic, Normocephalic, PERRLA Neck: Supple, 2+ carotid pulse no bruit, JVD not distended Respiratory: Clear to auscultation bilaterally, Normal air movement Cardiovascular: No edema, Normal pulses, Regular rate/rhythm, Normal S1 S2 Capillary refill: <2 Seconds Gastrointestinal: Normal bowel sounds, Soft and benign, Distended (obese) Musculoskeletal: No clubbing, No swelling Integumentary: No rashes, No breakdown Neurological: Normal speech, Normal strength at 5/5 x4 extr, Normal tone - Studies Laboratory Data (last 24 hrs) 08/20/23 08/20/23 09:30 09:30 WBC 14.30 H Hgb 12.8 Hct 37.9 Plt Count 314 Sodium 138 Potassium 3.6 BUN 12 Creatinine 0.76 Glucose 128 H Total Bilirubin 0.3 AST 10 L ALT 22 Alkaline Phosphatase 111 Lipase 38 Assessment and Plan - Plan Assessment and Plan Acute Pyelonephritis Lactic acidosis Leukocytosis -WBC 14.3 -rocephin given in ED -morphine -Cipro 400 mg BID -EKG for medication administration -lactic 2.1, redraw -CT bad/pelvis-right periureteric stranding and mild right sided hydronephrosis -IVF 100 ml/hr -follow blood cultures -UA- positive for blood, nitrites, leukocytes -Consulted Dr. Haq -Follow up with urology at discharge Hepatic steatosis. cirrhotic liver -lipid panel in the AM -CT abd/pelvis resulted -lipase 38, T wyatt 10.3, AST 10, ALT 22, Alk Po4 111, albumin 3.1 Diverticulosis without diverticulitis -CT abd/pelvis resulted -supportive care -follow up with GI at discharge Essential hypertension -BP 161/73 -monitor Q4 hour Hyperglycemia -serum glucose 128 -monitor in AM labs Obesity d/t increased calorie intake -BMI 53.14 -nutritionaly consult DVT ppx: lovenox Full code LOS 72 hours Discharge Plan: Home Plan to discharge in: 72 Hours - Advance Directives Does patient have a Living Will: No Does patient have a Durable POA for Healthcare: No - Code Status/Comfort Care Code Status Assessed: Yes Time Spent Managing Pts Care (In Minutes): 55
[2023-08-20] MEDS ORDERED: HEPARIN/D5W 25,000 UNIT/500 ML BAG IV ONE (12:20)
[2023-08-20] MEDS: NA CHLORIDE 0.9% 1,000 ML IV SCH (13:29)
[2023-08-20] MEDS: ENOXAPARIN 40 MG/0.4 ML SQ SCH (13:29)
[2023-08-20 13:42] LABS: Bilirubin Direct < 0.1 mg/dL (0-0.2); Magnesium 2.4 mg/dL (1.6-2.4); Phosphorus 3.2 mg/dL (2.5-4.9)
[2023-08-20] MEDS ORDERED: NA CHLORIDE 0.9% 1,000 ML ONE (14:36)
[2023-08-20] MEDS ORDERED: ENOXAPARIN 40 MG/0.4 ML SQ ONE (14:36)
[2023-08-20] MEDS ORDERED: CIPROFLOXACIN 400mg IV 400 MG/200 ML BAG IV ONE (14:36)
[2023-08-20] MEDS: CIPROFLOXACIN 400mg IV 400 MG/200 ML BAG IV SCH ×2 (14:40→21:19)
[2023-08-20] MEDS: MORPHINE 4 MG/ML SYR IV PRN ×2 (14:43→21:19)
[2023-08-21] MEDS: NA CHLORIDE 0.9% 1,000 ML IV SCH ×3 (05:57→21:47)
[2023-08-21 07:57] VITALS: BMI 53.1
[2023-08-21 08:03] LABS: Hematocrit 33.2 % (36.0-45.0); Lymphocytes % 27.7 % (15.3-44.8); MCV 84.2 fL (80-100); MPV 7.9 fL (7.6-11.3); Platelets 266 thou/uL (152-406); RBC Red Blood Cell Count 3.94 M/uL (3.86-4.86)
[2023-08-21 08:14] LABS: Phosphorus 3.3 mg/dL (2.5-4.9); Potassium 3.7 mEq/L (3.5-5.1)
[2023-08-21] MEDS: ENOXAPARIN 40 MG/0.4 ML SQ SCH (08:19)
[2023-08-21] MEDS: CIPROFLOXACIN 400mg IV 400 MG/200 ML BAG IV SCH ×2 (08:19→21:44)
[2023-08-21] MEDS: ACETAMINOPHEN 325 MG TABLET PO PRN (08:48)
[2023-08-21] MEDS ORDERED: POTASSIUM CL SA 10 MEQ TAB PO ONE (10:25)
--- NOTE | 2023-08-21 14:37 | P.PN ---
Subjective Date of Service: 08/21/23 Chief Complaint: abdominal pain, pyelonephritis No events overnight. She reports that her symptoms have improved significantly. She reports dysuria, which seems to be worse towards the end of urination. She denies any fevers, chills, chest pain, or palpitations. Urine culture has retu rned positive for gram-negative rods. Review of Systems 10-point ROS is otherwise unremarkable Genitourinary: Dysuria Physical Examination - Vital Signs Temperature: 97.0 F Blood Pressure: 149/55 Pulse: 70 Respirations: 18 Pulse Ox (%): 99 - Physical Exam General: Alert, In no apparent distress, Oriented x3 HEENT: Atraumatic, Mucous membr. moist/pink, Sclerae nonicteric Neck: JVD not distended Respiratory: Clear to auscultation bilaterally, Normal air movement Cardiovascular: No edema, Regular rate/rhythm, Normal S1 S2, No gallops, No rubs, No murmurs Gastrointestinal: Normal bowel sounds, Soft and benign, Non-distended, No tenderness, No rebound, No guarding Musculoskeletal: No clubbing Integumentary: No rashes Neurological: Normal speech, Normal affect Assessment And Plan - Plan # Acute Gram-Negative Pyelonephritis with Mild Right-Sided Hydroureteronephrosis - Evaluation thus far: - Does not meet SIRS criteria - Urinalysis = 3+ blood, 1+ nitrite, 500 leukocyte esterase, >50 RBCs, >50 WBCs, >50 bacteria, 2+ protein - Urine culture = gram-negative rods - CT abdomen = "mild right-sided hydroureteronephrosis and periureteric stranding. No obstructing stone or mass is seen. This could be secondary to either recently passed stone or infection" - Management plan: - Consulted Infectious Diseases and spoke with Dr. Haq - Recommends continuing IV ciprofloxacin and waiting for urine culture speciation + sensitivities - Follow-up renal ultrasound to ensure improvement in hydroureteronephrosis # Liver Cirrhosis # Diverticulosis - Noted on CT scan - Will require outpatient Gastroenterology follow-up # Morbid Obesity - BMI 53.1 kg/m2 - Lifestyle modifications Javier Latham M.D.
--- NOTE | 2023-08-21 19:36 | RAD REPORT ---
EXAM DESCRIPTION: US - Renal Ultrasound-Complete - 08/21/2023 6:59 pm CLINICAL HISTORY: Abdominal pain. Hydronephrosis COMPARISON: CT abdomen August 20, 2023 FINDINGS: The right kidney measures 11 cm with a normal echotexture. The left kidney measures 11 cm with a normal echotexture. Hydronephrosis is not seen. The bladder is decompressed and poorly evaluated IMPRESSION: Unremarkable renal ultrasound.
[2023-08-22 06:18] LABS: Hematocrit 33.9 % (36.0-45.0); Lymphocytes % 32.5 % (15.3-44.8); MPV 7.9 fL (7.6-11.3); Platelets 248 thou/uL (152-406); RBC Red Blood Cell Count 3.99 M/uL (3.86-4.86)
[2023-08-22 06:28] LABS: Magnesium 2.1 mg/dL (1.6-2.4); Phosphorus 3.7 mg/dL (2.5-4.9); Potassium 3.9 mEq/L (3.5-5.1)
[2023-08-22] MEDS: ENOXAPARIN 40 MG/0.4 ML SQ SCH (08:40)
[2023-08-22] MEDS: CIPROFLOXACIN 400mg IV 400 MG/200 ML BAG IV SCH ×2 (08:40→20:18)
[2023-08-22] MEDS: NA CHLORIDE 0.9% 1,000 ML IV SCH ×2 (08:44→20:18)
--- NOTE | 2023-08-22 11:45 | P.PN ---
Subjective Date of Service: 08/22/23 Chief Complaint: abdominal pain, pyelonephritis No new events. She reports continued improvement in her symptoms. Urine culture has returned positive for Escherichia Coli. Reviewed with Dr. Haq, who believes that she would benefit from an additional day of IV antibiotics. She denies any fevers, chills, chest pain, or palpitations. Anticipate discharge tomorrow if doing well and blood cultures remain without growth. Review of Systems 10-point ROS is otherwise unremarkable Genitourinary: Dysuria (minimal) Physical Examination - Vital Signs Temperature: 96.8 F Blood Pressure: 117/60 Pulse: 62 Respirations: 18 Pulse Ox (%): 98 Assessment And Plan - Plan - Physical Exam General: Alert, In no apparent distress, Oriented x3 HEENT: Atraumatic, Mucous membr. moist/pink, Sclerae nonicteric Neck: JVD not distended Respiratory: Clear to auscultation bilaterally, Normal air movement Cardiovascular: No edema, Regular rate/rhythm, No murmurs Gastrointestinal: Normal bowel sounds, Soft, Non-distended, No tenderness Integumentary: No rashes Neurological: Normal speech, Normal affect # Acute Escherichia Coli Pyelonephritis with Mild Right-Sided Hydroureteronephrosis - Evaluation thus far: - Does not meet SIRS criteria - Urinalysis = 3+ blood, 1+ nitrite, 500 leukocyte esterase, >50 RBCs, >50 WBCs, >50 bacteria, 2+ protein - Urine culture = E. Coli - CT abdomen = "mild right-sided hydroureteronephrosis and periureteric stranding. No obstructing stone or mass is seen. This could be secondary to either recently passed stone or infection" - Follow-up renal ultrasound = "unremarkable renal ultrasound." - Management plan: - Consulted Infectious Diseases and spoke with Dr. Haq - Recommends continuing IV ciprofloxacin for an additional day and consider discharge tomorrow if blood cultures remain with NGTD # Liver Cirrhosis # Diverticulosis - Noted on CT scan - Will require outpatient Gastroenterology follow-up # Morbid Obesity - BMI 53.1 kg/m2 - Lifestyle modifications Javier Latham M.D.
--- NOTE | 2023-08-22 14:48 | EKG ---
Test Date: 2023-08-20 Test Time: 13:04:31 [employer]: BENJAMIN MEASUREMENT RESULTS: Intervals: Rate: 69 AK: 158 QRSD: 110 QT: 414 QTc: 443 [place]: P: 58 AK: 158 QRS: 48 T: 38 INTERPRETIVE STATEMENTS: Normal sinus rhythm Normal ECG Compared to ECG 04/01/2017 13:37:24 Sinus arrhythmia no longer present Electronically Signed On 08-22-23 14:44:05 CDT by Heriberto Lee
[2023-08-22] MEDS: ACETAMINOPHEN 325 MG TABLET PO PRN (19:58)
[2023-08-22 23:29] VITALS: O2SAT 98
--- NOTE | 2023-08-23 05:26 | P.PN ---
Date of Service: 08/23/23 Subjective: Patient is clinically doing well with no new complaints. Clinical is status is stable. Physical Exam: Vitals: reviewed GEN: Alert, oriented, NAD HEENT: Normal conjunctiva, sclera anicteric CV: Regular rate & rhythm, no edema Pulm: Nonlabored respiraitons, clear bilaterally ABD: Soft, nontender, nondistended MSK: No joint tenderness Integumentary: No rashes Neuro: Normal speech, normal affect Problem List: Acute Escherichia Coli Pyelonephritis with Mild Right-Sided Hydroureteronephrosis Liver Cirrhosis Diverticulosis Morbid Obesity - BMI 53.1 kg/m2 PLAN Continue with plan of care as mentioned below: Continue cipro f/u with GI as outpatient for further eval/monitoring of liver cirrhosis/diverticulosis seen on CT. continue IV fluids DVT ppx with lovenox PRN pain medication
[2023-08-23 06:16] LABS: Absolute Lymphocytes (CBC) 3.1 K/uL (0.7-4.9); Lymphocytes % 35.3 % (15.3-44.8); MCV 84.3 fL (80-100); MPV 7.9 fL (7.6-11.3); Platelets 261 thou/uL (152-406); RBC Red Blood Cell Count 3.92 M/uL (3.86-4.86)
[2023-08-23 06:31] LABS: Phosphorus 3.6 mg/dL (2.5-4.9); Potassium 3.6 mEq/L (3.5-5.1)
[2023-08-23] MEDS: ENOXAPARIN 40 MG/0.4 ML SQ SCH (08:24)
[2023-08-23] MEDS: CIPROFLOXACIN 400mg IV 400 MG/200 ML BAG IV SCH (08:24)
[2023-08-23] MEDS ORDERED: INFLUENZA VACCINE (for 6+ mo) 0.5 ML DOSE IMVAC ONE (09:00)
[2023-08-23] MEDS: NA CHLORIDE 0.9% 1,000 ML IV SCH (10:14)
[2023-08-23 11:58] VITALS: BP 121/64; TEMP 98
--- NOTE | 2023-08-23 17:10 | CON ---
History Of Present Illness: Patient coming in with pyelonephritis and urinary tract infection second idalmis to E coli and possible contamination secondary to a Strep agalactiae. Patient is feeling much be tter. Currently, on Cipro. Denies any headache, nausea, vomiting, chest pain, abdominal pain, const ipation, or diarrhea. Past Medical History: Asthma, pulmonary embolism, otherwise unremarkable. Social History: Nonsmoker. Nondrinker. Family History: Noncontributory. Medication: Cipro. See MARs for other medications. Allergies: IODINE AND NAPROXEN. Review of Systems: A 10-point review was performed. Physical Examination: General: This is a 53-year-old female, lying in bed, not in any acute cardiopulmonary distress. Vital Signs: Temperature 97, pulse 62, respirations 20, blood pressure 120/62. HEENT: Unremarkable. Neck: Supple. Lungs: Clear to auscultation. Heart: S1, S2. Regular. Abdomen: Soft. Bowel sounds present. Obese. Extremities: No edema. Laboratory Data: Shows WBC down from 14.3 to 8.7, hemoglobin 11.5, platelets 261. Chemistry shows B UN is 12, creatinine 0.5, glucose is 117. Micro data shows urine cultures growing E coli and Strep a galactiae group B. Assessment And Plan: Pyelonephritis secondary to Escherichia coli with right-sided hydronephrosis an d periureteric stranding. Continue antibiotic for 2 weeks, can be switched to oral Cipro on discharg e. Follow up with urologist on hydronephrosis. We will follow patient closely. Thank you, Dr. Latham, for consult. HOLLY/MARIELLA Voice ID: [id number] Report ID: [id number]
[2023-08-23] MEDS ORDERED: CIPROFLOXACIN HCL 500 MG TAB PO SCH (21:00)
== END 2023-08-23 15:35 | disposition home or self-care (01) | DRG 690 ==
LOC: ER 08:52 → ERHOLD 11:18 → 4TH 18:37
PROVIDERS: ADMIT Internal Medicine; ATTEND Hospitalist
DX: N13.6 Pyonephrosis (principal); E87.20 Acidosis, unspecified; Z68.43 Body mass index [BMI] 50.0-59.9, adult; E66.01 Morbid (severe) obesity due to excess calories; K76.0 Fatty (change of) liver, not elsewhere classified; K74.60 Unspecified cirrhosis of liver; K57.90 Diverticulosis of intestine, part unspecified, without perforation or abscess without bleeding; J45.909 Unspecified asthma, uncomplicated; B96.20 Unspecified Escherichia coli [E. coli] as the cause of diseases classified elsewhere; R73.9 Hyperglycemia, unspecified; Z88.8 Allergy status to other drugs, medicaments and biological substances; Z79.899 Other long term (current) drug therapy; Z86.711 Personal history of pulmonary embolism
CPT/HCPCS: 36415; 74176; 76377; 76770; 80048; 80053; 80061; 81001; 82248; 83036; 83605; 83690; 83735; 84100; 85025; 87040; 87077; 87086; 87088; 87186; 93005; 96365; 96375; 99285; J0696; J0744; J1650; J2405; J7030